=== PATIENT | male | born 1960 | race Caucasian/White ===

== ENCOUNTER 2018-05-04 20:37 | Emergency (ER) | payer MEDICAID ==
[~2018-05-04] VITALS: Ht 165.1 cm; Wt 90.7 kg
[2018-05-04 20:45] VITALS: BP 128/81
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
[2018-05-04] MEDS ORDERED: Bacitracin Oint UD TOPIC ONE (21:00)
[2018-05-04] MEDS ORDERED: TRAMADOL HCL50 MG ORAL (21:43)
[2018-05-04] MEDS ORDERED: BACITRACIN15 GM TOPIC (21:43)
[2018-05-04] MEDS ORDERED: IBUPROFEN600 MG ORAL (21:43)
[2018-05-04 22:12] VITALS: BP_SYST 124; BP_SYST 128; BP_DIAS 78; BP_DIAS 81
--- NOTE | 2018-05-05 13:41 | Diagnostic Imaging Report ---
Indication: Pain, trauma Technique: 3 views left hand Comparison: none Findings: There is an oblique fracture of the fifth proximal phalanx. This is displaced by a few millimeters and slightly angulated posteriorly. No other acute fractures. No dislocations. Bony alignment is normal. Joint spaces are preserved. Impression: Positive for fracture of the this proximal phalanx This agrees with the preliminary interpretation provided by the emergency room physician
== END 2018-05-04 22:13 | disposition home or self-care (01) ==
LOC: EDBD 20:37 → EMR 21:00
DX: S62.647A Nondisplaced fracture of proximal phalanx of left little finger, initial encounter for closed fracture (principal); I10 Essential (primary) hypertension; F20.9 Schizophrenia, unspecified; F17.200 Nicotine dependence, unspecified, uncomplicated; Z88.8 Allergy status to other drugs, medicaments and biological substances; X99.9XXA Assault by unspecified sharp object, initial encounter; Y92.9 Unspecified place or not applicable
CPT/HCPCS: 99283